=== PATIENT | female | born 1950 | race Caucasian/White ===

== ENCOUNTER → 2017-04-24 | Outpatient (CLI) | payer OTHER | END | disposition home or self-care (01) | LOC: RAH 10:35 | PROVIDERS: ATTEND Internal Medicine Critical Care Medicine | DX: M47.895 Other spondylosis, thoracolumbar region (principal); M17.11 Unilateral primary osteoarthritis, right knee; K74.60 Unspecified cirrhosis of liver; Z87.891 Personal history of nicotine dependence | CPT/HCPCS: 71046; 73562; 76705 ==

== ENCOUNTER → 2017-05-05 | Outpatient (CLI) | payer OTHER | END | disposition home or self-care (01) | LOC: OIH 13:40 | PROVIDERS: ATTEND Internal Medicine Critical Care Medicine | DX: Z13.6 Encounter for screening for cardiovascular disorders (principal) | CPT/HCPCS: 75571 ==

== ENCOUNTER → 2017-05-29 | Outpatient (CLI) | payer OTHER ==
[~2017-05-29] VITALS: Ht 182.9 cm; Wt 94.3 kg
[~2017-05-29] MED LIST: REGADENOSON 0.4 MG/5 ML PF SYG IVP SCH
== END ==
LOC: SHCH 10:12
PROVIDERS: ATTEND Internal Medicine Cardiovascular Disease
DX: I25.10 Atherosclerotic heart disease of native coronary artery without angina pectoris (principal)
CPT/HCPCS: 78452; 93017; 93306; 96374; A9500 ×2; J2785

== ENCOUNTER → 2017-07-24 | Outpatient (CLI) | payer OTHER | END | disposition home or self-care (01) | LOC: OIH 10:51 | PROVIDERS: ATTEND Physical Medicine & Rehabilitation | DX: M50.323 Other cervical disc degeneration at C6-C7 level (principal); M43.12 Spondylolisthesis, cervical region | CPT/HCPCS: 72050 ==

== ENCOUNTER 2017-12-22 09:00 | Emergency (ER) | payer OTHER | END 2017-12-22 09:53 | disposition home or self-care (01) | LOC: EDH 09:00 → EDSEX 09:00 → EDH 09:53 | DX: L98.8 Other specified disorders of the skin and subcutaneous tissue (principal) | CPT/HCPCS: 99281 ==

== ENCOUNTER → 2019-11-15 | Outpatient (CLI) | payer OTHER | END | disposition home or self-care (01) | LOC: RAH 10:23 | PROVIDERS: ATTEND Internal Medicine Gastroenterology | DX: R16.0 Hepatomegaly, not elsewhere classified (principal); I70.0 Atherosclerosis of aorta | CPT/HCPCS: 76700 ==

== ENCOUNTER 2020-09-22 06:25 | Day surgery (SDC) | payer OTHER ==
[~2020-09-22] VITALS: Ht 182.9 cm; Wt 94.3 kg
[2020-09-22] MEDS ORDERED: 0.9%NACL 1000ML 1,000 ML IV ONE (06:28)
[2020-09-22 08:00] VITALS: BP 121/68
[2020-09-22] MEDS ORDERED: OMEP40CA21 PO (08:41)
[2020-09-22] MEDS ORDERED: LEVO112C4 PO (08:41)
[2020-09-22] MEDS ORDERED: RAMI2.5C55 PO (08:41)
[2020-09-22] MEDS ORDERED: METO-408 PO (08:41)
[2020-09-22] MEDS ORDERED: folic acid PO (08:41)
[2020-09-22] MEDS ORDERED: PROPOFOL 10 MG/ML 20ML VIAL IV ONE ×3 (09:19→09:49)
[2020-09-22] MEDS ORDERED: LEVOFLOXACIN 500 MG/D5W 100 ML 100 ML ONE (09:57)
[2020-09-22 10:05] VITALS: BP 111/88
[2020-09-22 10:10] VITALS: BP 116/84
[2020-09-22 10:15] VITALS: BP 122/74
== END 2020-09-22 10:30 | disposition home or self-care (01) ==
LOC: ENDO 06:25 → DAH 06:25 → ENDO 10:30
PROVIDERS: ATTEND Internal Medicine
DX: K22.70 Barrett's esophagus without dysplasia (principal); Z20.822 Contact with and (suspected) exposure to COVID-19; K21.9 Gastro-esophageal reflux disease without esophagitis; K29.70 Gastritis, unspecified, without bleeding; K44.9 Diaphragmatic hernia without obstruction or gangrene; K57.30 Diverticulosis of large intestine without perforation or abscess without bleeding; E03.9 Hypothyroidism, unspecified; R94.5 Abnormal results of liver function studies; F17.210 Nicotine dependence, cigarettes, uncomplicated; Z72.89 Other problems related to lifestyle; Z98.49 Cataract extraction status, unspecified eye; Z79.890 Hormone replacement therapy; Z79.899 Other long term (current) drug therapy; Z85.828 Personal history of other malignant neoplasm of skin; Z86.010 Personal history of colon polyps
CPT/HCPCS: 43238; 43239; 87071; 87077 ×2; 87186 ×2; 87205; 87635; A4215 ×2; A4221; A4222; A4223; A4606; A4620; A4657 ×2; A4663; J1956; J2704 ×3; J7030

== ENCOUNTER → 2020-12-15 | Outpatient (CLI) | payer OTHER ==
[~2020-12-15] MED LIST changes: +LEVO112C4 PO; +METO-408 PO; +OMEP40CA21 PO; +RAMI2.5C55 PO; -REGADENOSON 0.4 MG/5 ML PF SYG IVP SCH; +folic acid PO
== END | disposition home or self-care (01) ==
LOC: OIH 12:18
PROVIDERS: ATTEND Internal Medicine Critical Care Medicine
DX: Z13.6 Encounter for screening for cardiovascular disorders (principal); I25.10 Atherosclerotic heart disease of native coronary artery without angina pectoris; R91.1 Solitary pulmonary nodule
CPT/HCPCS: 75571